=== PATIENT | female | born 1945 | race African-American/Black ===

== ENCOUNTER 2018-02-11 11:26 | Emergency (ER) | payer OTHER ==
[~2018-02-11] VITALS: Ht 160 cm; Wt 61.2 kg
[2018-02-11 11:39] VITALS: BP 116/72
[2018-02-11] MEDS ORDERED: PREDNISONE 20 M20 MG PO (11:45)
[2018-02-11] MEDS ORDERED: KEFLEX500 M1 PO (11:45)
== END 2018-02-11 11:56 | disposition home or self-care (01) ==
LOC: ER 11:26
DX: S60.861A Insect bite (nonvenomous) of right wrist, initial encounter (principal); W57.XXXA Bitten or stung by nonvenomous insect and other nonvenomous arthropods, initial encounter; Y93.89 Activity, other specified; Y92.89 Other specified places as the place of occurrence of the external cause; Y99.8 Other external cause status

== ENCOUNTER 2018-03-08 15:12 | Emergency (ER) | payer OTHER ==
[~2018-03-08] VITALS: Ht 157.5 cm; Wt 56.7 kg
[~2018-03-08 15:12] MED LIST: KEFLEX500 M1 PO; PREDNISONE 20 M20 MG PO
[2018-03-08] MEDS ORDERED: FLEXERIL PO (16:47)
[2018-03-08] MEDS ORDERED: MOBIC15 MG PO (16:47)
[2018-03-08 16:49] VITALS: BP 128/72
== END 2018-03-08 16:51 | disposition home or self-care (01) ==
LOC: ER 15:12
DX: S09.90XA Unspecified injury of head, initial encounter (principal); M54.2 Cervicalgia; M25.522 Pain in left elbow; Z90.710 Acquired absence of both cervix and uterus; W01.198A Fall on same level from slipping, tripping and stumbling with subsequent striking against other object, initial encounter; Y93.89 Activity, other specified; Y92.89 Other specified places as the place of occurrence of the external cause; Y99.8 Other external cause status

== ENCOUNTER 2020-09-11 13:39 | Emergency (ER) | payer OTHER ==
[~2020-09-11] VITALS: Ht 157.5 cm; Wt 57.6 kg
[~2020-09-11 13:39] MED LIST changes: +FLEXERIL PO; +MOBIC15 MG PO
[2020-09-11 14:51] LABS: ABSOLUTE NEUTROPHILS 4.7 thou/uL (1.4-8.2); BASOPHILS 0.9 % (0.0-2.0); EOSINOPHILS 0.7 % (0.0-3.0); HEMOGLOBIN 10.4 gm/dL (12.0-15.0); LYMPHOCYTES 24.8 % (24.0-44.0); MCH 27.7 pg (26.0-34.0); MCHC 32.5 g/dL (28.0-37.0); MCV 85.2 fL (80.0-100.0); MONOCYTES 5.7 % (1.0-8.0); PLATELET COUNT 292 thou/uL (150-400); POLYS 67.9 % (36.0-66.0); RBC 3.75 mil/uL (4.20-5.00); RDW 15.2 % (10.5-14.5); WBC 6.9 thou/uL (4.0-11.0)
[2020-09-11 15:00] LABS: CALCIUM 9.3 mg/dL (8.5-10.1); CREATININE 0.9 mg/dL (0.6-1.0); POTASSIUM 3.2 mmol/L (3.5-5.1)
[2020-09-11] MEDS ORDERED: ATIVAN0.5 M1 PO (16:20)
[2020-09-11 16:49] VITALS: BP 139/80
== END 2020-09-11 16:48 | disposition home or self-care (01) ==
LOC: ER 13:39
PROVIDERS: Nurse Practitioner
DX: R42 Dizziness and giddiness (principal); Z90.710 Acquired absence of both cervix and uterus; Z79.899 Other long term (current) drug therapy